=== PATIENT | female | born 2000 | race Two or more races ===

== ENCOUNTER 2019-11-09 20:10 | Outpatient (CLI) | payer OTHER ==
[2019-11-09] MEDS ORDERED: PRENATAL TABLE1 EAC3 PO (20:38)
== END 2019-11-10 10:40 | disposition home or self-care (01) ==
LOC: OBS/DEL 20:10
PROVIDERS: ATTEND Obstetrics & Gynecology
DX: O99.012 Anemia complicating pregnancy, second trimester (principal); D64.89 Other specified anemias

== ENCOUNTER 2020-01-28 12:03 | Inpatient (IN) | payer OTHER ==
[~2020-01-28] VITALS: Ht 154.9 cm; Wt 3.6 kg
[~2020-01-28 12:03] MED LIST: PRENATAL TABLE1 EAC3 PO
== END 2020-02-19 14:28 | DRG 788 ==
LOC: OB/GYN 02-04 13:15 → LDR 02-17 10:24 → OB/GYN 02-17 10:24 → O/R 02-17 10:24 → OB/GYN 02-17 16:53
PROVIDERS: ADMIT Obstetrics & Gynecology; ATTEND Obstetrics & Gynecology
PROC: 4A0HXFZ Measurement of Products of Conception, Cardiac Rhythm, External Approach (ICD-10-PCS; 2020-02-17)
PROC: 10D00Z1 Extraction of Products of Conception, Low, Open Approach (ICD-10-PCS; principal; 2020-02-17 15:00)
DX: O62.0 Primary inadequate contractions (principal); O62.1 Secondary uterine inertia; Z3A.39 39 weeks gestation of pregnancy; Z37.0 Single live birth

== ENCOUNTER 2020-02-17 06:14 | Outpatient (CLI) | payer OTHER | END 2020-02-17 10:24 | disposition still patient (30) | LOC: OBS/DEL 06:14 | PROVIDERS: ATTEND Obstetrics & Gynecology | DX: O47.1 False labor at or after 37 completed weeks of gestation (principal) ==